=== PATIENT | female | born 1930 | race Caucasian/White ===

== ENCOUNTER → 2018-07-26 | Outpatient (CLI) | payer MEDICARE, OTHER ==
--- NOTE | 2018-07-26 11:10 | Diagnostic Imaging Report ---
EXAM: Renal Ultrasound and bladder ultrasound INDICATION: CKD III COMPARISON: None TECHNIQUE: Transverse and longitudinal images of the kidneys and bladder were obtained. FINDINGS: Right Kidney: Length: 9.8 x 4 x 5 cm Appearance: Increased echogenicity. Collecting system: No hydronephrosis Stones: None Cyst/Mass: No evidence of solid mass. Simple appearing anechoic right upper pole renal cyst measuring up to 1.2 cm and right lower pole renal cyst measuring up to 7.8 cm. Left Kidney: Length: 9.7 x 3.9 x 3.8 cm Appearance: Increased echogenicity. Collecting system: No hydronephrosis Stones: None Cyst/Mass: No evidence of solid mass. Hypoechoic cyst with homogeneous internal echoes in left upper pole kidney measuring up to 2.8 cm. Bladder: Unremarkable in appearance. Bilateral ureteral jets are noted. IMPRESSION: Increased bilateral renal echogenicity, suggestive of medical renal disease. No evidence of hydronephrosis or stone. Bilateral renal cysts as above. Signed by: Dr. Randall Arias MD on 07/26/2018 11:07 AM
== END ==
LOC: US 08:41
PROVIDERS: ATTEND Internal Medicine Nephrology
DX: N18.3 Chronic kidney disease, stage 3 (moderate) (principal)
CPT/HCPCS: 76770; 76857

== ENCOUNTER 2019-02-26 17:49 | Emergency (ER) | payer MEDICARE, OTHER ==
[~2019-02-26] VITALS: Ht 152.4 cm; Wt 56.7 kg
--- OUTSIDE RECORDS SUMMARY | 2019-02-26 17:52 | XMS REPORT ---
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 Allergies, Adverse Reactions, Alerts This patient has no known allergies or adverse reactions. Medications This patient has no known medications. Results Test Description Test Time Test Comments Text Results Atomic Results Result Comments US PELVIC (NON OB) BURRELL OR F/U 2018-07-26 11:02:00 [place] [address] Patient Name: FLO REHMAN MR #: [id number] : 1930 Age/Sex: 88/F Req #: [id number] Adm Physician: Ordered by: BRIT SANTAMARIA MD Report #: [id number] Location: US Room/Bed: Procedure: [id number] US/US PELVIC (NON OB) BURRELL OR F/U Exam Date: 07/26/18 Exam Time: 0938 REPORT STATUS: Signed ADDENDUM #1 ADDENDUM: 1) The right lower pole renal cyst measuring 7.8 cm is anechoic and simple appearing. 2) Bladder pre-void volume: 46.5 cc and post-void volume 10 cc. Signed by: Dr. Michael Le MD on 09/29/2018 2:54 PM ORIGINAL REPORT EXAM: Renal Ultrasound and bladder ultrasound INDICATION: CKD III COMPARISON: None TECHNIQUE: Transverse and longitudinal images of the kidneys and bladder were obtained. FINDINGS: Right Kidney: Length: 9.8 x 4 x 5 cm Appearance: Increased echogenicity. Collecting system: No hydronephrosis Stones: None Cyst/Mass: No evidence of solid mass. Simple appearing anechoic right upper pole renal cyst measuring up to 1.2 cm and right lower pole renal cyst measuring up to 7.8 cm. Left Kidney: Length: 9.7 x 3.9 x 3.8 cm Appearance: Increased echogenicity. Collecting system: No hydronephrosis Stones: None Cyst/Mass: No evidence of solid mass. Hypoechoic cyst with homogeneous internal echoes in left upper pole kidney measuring up to 2.8 cm. Bladder: Unremarkable in appearance. Bilateral ureteral jets are noted. IMPRESSION: Increased bilateral renal echogenicity, suggestive of medical renal disease. No evidence of hydronephrosis or stone. Bilateral renal cysts as above. Signed by: Dr. Michael Le MD on 07/26/2018 11:07 AM Dictated By: MICHAEL LE MD [id number] Transcribed By: SORAYA on 07/26/18 1103 COPY TO: BRIT SANTAMARIA MD RENAL RETROPERITONEAL COMP 2018-07-26 11:02:00 [place] [address] Patient Name: FLO REHMAN MR #: [id number] : 1930 Age/Sex: 88/F Req #: [id number] Adm Physician: Ordered by: BRIT SANTAMARIA MD Report #: [id number] Location: US Room/Bed: Procedure: [id number] US/US RENAL RETROPERITONEAL COMP Exam Date: 07/26/18 Exam Time: 0938 REPORT STATUS: Signed ADDENDUM #1 ADDENDUM: 1) The right lower pole renal cyst measuring 7.8 cm is anechoic and simple appearing. 2) Bladder pre-void volume: 46.5 cc and post-void volume 10 cc. Signed by: Dr. Michael Le MD on 09/29/2018 2:54 PM ORIGINAL REPORT EXAM: Renal Ultrasound and bladder ultrasound INDICATION: CKD III COMPARISON: None TECHNIQUE: Transverse and longitudinal images of the kidneys and bladder were obtained. FINDINGS: Right Kidney: Length: 9.8 x 4 x 5 cm Appearance: Increased echogenicity. Collecting system: No hydronephrosis Stones: None Cyst/Mass: No evidence of solid mass. Simple appearing anechoic right upper pole renal cyst measuring up to 1.2 cm and right lower pole renal cyst measuring up to 7.8 cm. Left Kidney: Length: 9.7 x 3.9 x 3.8 cm Appearance: Increased echogenicity. Collecting system: No hydronephrosis Stones: None Cyst/Mass: No evidence of solid mass. Hypoechoic cyst with homogeneous internal echoes in left upper pole kidney measuring up to 2.8 cm. Bladder: Unremarkable in appearance. Bilateral ureteral jets are noted. IMPRESSION: Increased bilateral renal echogenicity, suggestive of medical renal disease. No evidence of hydronephrosis or stone. Bilateral renal cysts as above. Signed by: Dr. Michael Le MD on 07/26/2018 11:07 AM Dictated By: MICHAEL LE MD [id number] Transcribed By: SORAYA on 07/26/18 110 COPY TO: BRIT SANTAMARIA MD
[2019-02-26] MEDS ORDERED: FAMOTIDINE 20 MG TAB PO NR (18:45)
[2019-02-26] MEDS ORDERED: DEXAMETHASONE SOD PHOS 10 MG/1 ML VIAL IM NR (18:45)
[2019-02-26] MEDS ORDERED: DIPHENHYDRAMINE HCL 25 MG CAP PO NR (18:45)
== END 2019-02-26 19:18 | disposition home or self-care (01) ==
LOC: ER 17:49
DX: L23.7 Allergic contact dermatitis due to plants, except food (principal); I10 Essential (primary) hypertension
CPT/HCPCS: 99283; J1100